=== PATIENT | male | born 1965 | race Caucasian/White ===

== ENCOUNTER 2018-08-18 07:18 | Day surgery (SDC) | payer OTHER ==
[~2018-08-18] VITALS: Ht 177.8 cm; Wt 78.8 kg
[2018-08-18 07:48] VITALS: Ht 177.8 cm; Wt 78.8 kg
[2018-08-18] MEDS ORDERED: NO MEDS (07:51)
[2018-08-18 08:00] VITALS: BP 101/64; PULSE 60; RESP 16
[2018-08-18] MEDS ORDERED: MIDAZOLAM 1 MG/ML 2 ML INJ ONE ×3 (09:16→09:24)
[2018-08-18] MEDS ORDERED: FENTAnyl 50 MCG/ML VIAL ONE (09:16)
[2018-08-18 09:40] VITALS: BP 103/61; RESP 15
== END 2018-08-18 12:47 | disposition home or self-care (01) ==
LOC: GIL 07:18
PROVIDERS: ATTEND Internal Medicine Gastroenterology
DX: Z12.11 Encounter for screening for malignant neoplasm of colon (principal); K64.8 Other hemorrhoids
CPT/HCPCS: 45378; J2250; J3010